=== PATIENT | male | born 1960 | race African-American/Black ===

== ENCOUNTER 2018-09-26 14:58 | Emergency (ER) | payer BC ==
[2018-09-26] MEDS ORDERED: NORMAL SALINE 500 ML IV ONE (15:52)
[2018-09-26] MEDS ORDERED: DIAZEPAM 5 MG TABLET PO ONE (15:52)
--- NOTE | 2018-09-26 15:54 | ER Document Report ---
ED Medical Screen (RME) - General Chief Complaint: Dizziness Stated Complaint: DIZZY Time Seen by Provider: 09/26/18 15:50 Mode of Arrival: Ambulatory Information source: Patient Notes: This is a 58-year-old man with a history of dyslipidemia, hypertension, diabetes, CVA who presents to the emergency room with acute onset of dizziness and unsteady gait. Patient's symptoms started approximately 7 AM while he was at work. The symptoms persisted so he came to the ER. In pit, there is no facial asymmetry, no slurred speech, no focal motor weakness. TRAVEL OUTSIDE OF THE [place] IN LAST 30 DAYS: No - Related Data Allergies/Adverse Reactions: Shellfish * [Shellfish] Allergy (Severe, Verified 09/26/18 15:13) Anaphylaxis Past Medical History - Social History Frequency of alcohol use: Rare Drug Abuse: None - Past Medical History Cardiac Medical History: Reports: Hx Hypercholesterolemia, Hx Hypertension Neurological Medical History: Reports: Hx Cerebrovascular Accident, Hx Seizures Endocrine Medical History: Reports: Hx Diabetes Mellitus Type 2 Renal/ Medical History: Denies: Hx Peritoneal Dialysis Psychiatric Medical History: Denies: Hx Depression - Immunizations Hx Diphtheria, Pertussis, Tetanus Vaccination: No Physical Exam - Vital signs Vitals: Temp Pulse Resp BP Pulse Ox 98.2 F 75 19 148/92 H 92 09/26/18 15:16 09/26/18 15:16 09/26/18 15:16 09/26/18 15:16 09/26/18 15:16 Course - Vital Signs Vital signs: Temp Pulse Resp BP Pulse Ox 98.2 F 75 19 148/92 H 92 09/26/18 15:16 09/26/18 15:16 09/26/18 15:16 09/26/18 15:16 09/26/18 15:16 Doctor's Discharge - Discharge Referrals: CHILANGO LOO MD [Primary Care Provider] - Follow up as needed
--- NOTE | 2018-09-26 16:30 | ER Document Report ---
ED General - General Chief Complaint: Dizziness Stated Complaint: DIZZY Time Seen by Provider: 09/26/18 15:50 Mode of Arrival: Ambulatory Information source: Patient Notes: 58-year-old male with hypertension, hyperlipidemia, type 2 diabetes, previous CVA presents from work with complaint of dizziness that started 1 AM and a frontal headache. Patient describes the dizziness as "I feel like I am going to fall out". Patient's headache is described as a throbbing pain located in his forehead. Patient denies any head injury, visual change, vomiting, slurred speech, difficulty with ambulation, recent illness, chest pain, shortness of breath, abdominal pain, dysuria, hematuria, recent hospitalizations. TRAVEL OUTSIDE OF THE [place] IN LAST 30 DAYS: No - HPI Onset: This morning Onset/Duration: Gradual, Persistent Quality of pain: Throbbing Severity: Mild Associated symptoms: Headache, Other - Dizziness Exacerbated by: Walking Relieved by: Denies Similar symptoms previously: No Recently seen / treated by doctor: No - Related Data Allergies/Adverse Reactions: Shellfish * [Shellfish] Allergy (Severe, Verified 09/26/18 15:13) Anaphylaxis Past Medical History - General Information source: Patient - Social History Smoking Status: Never Smoker Frequency of alcohol use: Rare Drug Abuse: None Lives with: Spouse/Significant other Family History: Reviewed & Not Pertinent - History of dvt, pe Patient has suicidal ideation: No Patient has homicidal ideation: No - Past Medical History Cardiac Medical History: Reports: Hx Hypercholesterolemia, Hx Hypertension Neurological Medical History: Reports: Hx Cerebrovascular Accident, Hx Seizures Endocrine Medical History: Reports: Hx Diabetes Mellitus Type 2 Renal/ Medical History: Denies: Hx Peritoneal Dialysis Psychiatric Medical History: Denies: Hx Depression - Immunizations Hx Diphtheria, Pertussis, Tetanus Vaccination: No Review of Systems - Review of Systems Notes: REVIEW OF SYSTEMS: CONSTITUTIONAL : Denies fever, chills, or sweats. Denies recent illness. Denies weight loss, recent hospitalizations. EENT: Denies visual changes, eye pain. Denies sore throat, oral lesions, difficulty swallowing. CARDIOVASCULAR: Denies chest pain. Denies palpitations. Denies lower extremity edema. RESPIRATORY: Denies cough. Denies shortness of breath, wheezing. GASTROINTESTINAL: Denies abdominal pain or distention. Denies nausea, vomiting, or diarrhea. Denies blood in vomitus, stools, or per rectum. Denies black, tarry stools. Denies constipation. GENITOURINARY: Denies difficulty urinating, painful urination, frequency, blood in urine, testicular pain or penile discharge. MUSCULOSKELETAL: Denies back or neck pain or stiffness. Denies joint pain or swelling. SKIN: Denies rash, lesions or sores. HEMATOLOGIC : Denies easy bruising or bleeding. LYMPHATIC: Denies swollen glands. NEUROLOGICAL: Denies confusion or altered mental status. Denies loss of consciousness. Denies weakness or paralysis. Denies difficulty with ambulation, slurred speech. Denies sensory loss, numbness, or tingling. Denies seizures. PSYCHIATRIC: Denies anxiety or stress. Denies depression, suicidal ideation, or Physical Exam - Vital signs Vitals: Temp Pulse Resp BP Pulse Ox 98.2 F 75 19 148/92 H 92 09/26/18 15:16 09/26/18 15:16 09/26/18 15:16 09/26/18 15:16 09/26/18 15:16 - Notes Notes: PHYSICAL EXAMINATION: GENERAL: Well-appearing, well-nourished and in no acute distress. HEAD: Atraumatic, normocephalic. EYES: Pupils equal round and reactive to light, extraocular movements intact, sclera anicteric, conjunctiva are normal. ENT: Nares patent, oropharynx clear without exudates. Moist mucous membranes. NECK: Normal range of motion, supple without lymphadenopathy LUNGS: Breath sounds clear to auscultation bilaterally and equal. No wheezes rales or rhonchi. HEART: Regular rate and rhythm without murmurs ABDOMEN: Soft, nontender, nondistended abdomen. No guarding, no rebound. No masses appreciated. Musculoskeletal: Normal range of motion, no pitting or edema. No cyanosis. NEUROLOGICAL: Cranial nerves grossly intact. Normal speech, normal gait. Normal sensory, motor exams. NIH 0 PSYCH: Normal mood, normal affect. SKIN: Warm, Dry, normal turgor, no rashes or lesions noted. Course - Re-evaluation Re-evalutation: 09/26/18 19:17 Laboratory 09/26/18 09/26/18 09/26/18 16:38 16:38 16:38 WBC 7.8 RBC 5.45 Hgb 15.7 Hct 47.8 MCV 88 MCH 28.9 MCHC 32.9 RDW 13.5 Plt Count 229 Seg Neutrophils % 68.0 Lymphocytes % 20.0 Monocytes % 9.3 Eosinophils % 2.0 Basophils % 0.7 Absolute Neutrophils 5.3 Absolute Lymphocytes 1.6 Absolute Monocytes 0.7 Absolute Eosinophils 0.2 Absolute Basophils 0.1 Sodium 143.0 Potassium 4.8 Chloride 107 Carbon Dioxide 26 Anion Gap 10 BUN 16 Creatinine 1.39 H Est GFR ( Amer) > 60 Est GFR (Non-Af Amer) 52 L Glucose 106 Calcium 9.9 Total Bilirubin 0.9 Direct Bilirubin 0.3 Neonat Total Bilirubin Not Reportable Neonat Direct Bilirubin Not Reportable Neonat Indirect Bili Not Reportable AST 31 ALT 48 Alkaline Phosphatase 108 Troponin I < 0.012 Total Protein 8.0 Albumin 4.7 Head MRI 09/26/18 15:52 IMPRESSION: No MR evidence of acute diffusion restricting infarction. Small vessel white matter disease. EVIDENCE OF ACUTE STROKE: NO. Temp Pulse Resp BP Pulse Ox 97.4 F 76 16 128/79 H 92 09/26/18 19:34 09/26/18 19:34 09/26/18 19:34 09/26/18 19:34 09/26/18 19:34 58-year-old male with hypertension, hyperlipidemia, type 2 diabetes, previous CVA presents from work with complaint of dizziness that started 1 AM and a frontal headache. Vital signs reviewed upon arrival and patient is afebrile, normotensive and not hypoxic. Patient has a normal physiologic and neurologic exam. NIH is 0. MRI ordered by the physician in triage is negative for evidence of acute stroke. Patient reports improvement of his dizziness after receiving IV fluids and Valium. MRI negative for stroke. CBC, CMP and cardiac enzymes are essentially unremarkable except for mildly elevated creatinine which is better than the patient's usual baseline. Patient is able to ambulate without difficulty. He is tolerating p.o. Patient was evaluated and treated as appropriate for the patient's presenting symptoms and complaint, with consideration of any critical or life threatening conditions that may be associated with their obtained history and exam as noted above. All results were discussed with patient and his patient provided the opportunity to ask questions, and express concerns. Patient was educated on treatments based on their presumed diagnosis as noted above. At this time we will discharge the patient with return precautions and follow-up recommendations. Verbal discharge instructions given a the bedside. Medication warnings reviewed. Patient is in agreement with this plan and has verbalized understanding of return precautions. After careful consideration I feel that that patient can be safely discharged from the emergency department, they were advised to followup with a primary care physician in 2-3 days. Dictation on this chart was performed using voice recognition software and may result in unintended grammatical, spelling, syntax or errors. 09/27/18 02:26 - Vital Signs Vital signs: Temp Pulse Resp BP Pulse Ox 97.4 F 76 16 128/79 H 92 09/26/18 19:34 09/26/18 19:34 09/26/18 19:34 09/26/18 19:34 09/26/18 19:34 - Laboratory Result Diagrams: 09/26/18 16:38 09/26/18 16:38 Laboratory results interpreted by me: 09/26/18 16:38 Creatinine 1.39 H Est GFR (Non-Af Amer) 52 L - Diagnostic Test Radiology reviewed: Image reviewed, Reports reviewed - EKG Interpretation by Me EKG shows normal: Sinus rhythm Rate: Normal Rhythm: NSR Heart block present: 1st Degree When compared to previous EKG there are: Changes noted Discharge - Discharge Clinical Impression: Dizziness Hypertension Qualifiers: Hypertension type: unspecified Qualified Code(s): I10 - Essential (primary) hypertension Condition: Good Disposition: HOME, SELF-CARE Instructions: Dizziness ([facility]), Meclizine ([facility]), Vertigo ([facility]) Prescriptions: Meclizine HCl 25 mg PO Q8H #10 tab.chew Forms: Elevated Blood Pressure, Return to Work Referrals: CHILANGO LOO MD [NO LOCAL MD] - Follow up as needed
[2018-09-26 16:55] LABS: ABSOLUTE BASOPHILS # (AUTO) 0.1 10^3/uL (0.0-0.2); ABSOLUTE EOSINOPHILS # (AUTO) 0.2 10^3/uL (0.0-0.6); ABSOLUTE LYMPHOCYTES (AUTO) 1.6 10^3/uL (0.5-4.7); ABSOLUTE MONOCYTES (AUTO) 0.7 10^3/uL (0.1-1.4); ABSOLUTE NEUT (AUTO) 5.3 10^3/uL (1.7-8.2); BASOPHILS % (AUTO) 0.7 % (0-2); HEMATOCRIT 47.8 % (37.9-51.0); HEMOGLOBIN 15.7 g/dL (13.5-17.0); MEAN CORPUSCULAR HEMOGLOBIN 28.9 pg (27.0-33.4); MEAN CORPUSCULAR HGB CONC 32.9 g/dL (32.0-36.0); MEAN CORPUSCULAR VOLUME 88 fl (80-97); MONOCYTES % (AUTO) 9.3 % (3-13); PLATELET COUNT 229 10^3/uL (150-450); RED BLOOD COUNT 5.45 10^6/uL (4.35-5.55); RED CELL DISTRIBUTION WIDTH 13.5 % (11.5-14.0); TOTAL CELLS COUNTED % (AUTO) 100 %; WHITE BLOOD COUNT 7.8 10^3/uL (4.0-10.5)
[2018-09-26 17:17] LABS: ALANINE AMINOTRANSFERASE 48 U/L (21-72); ALBUMIN 4.7 g/dL (3.5-5.0); ALKALINE PHOSPHATASE 108 U/L (38-126); ANION GAP 10 (5-19); ASPARTATE AMINO TRANSFERASE 31 U/L (17-59); BILIRUBIN,DIRECT 0.3 mg/dL (0.0-0.4); BILIRUBIN,TOTAL 0.9 mg/dL (0.2-1.3); BLOOD UREA NITROGEN 16 mg/dL (7-20); CALCIUM 9.9 mg/dL (8.4-10.2); CARBON DIOXIDE 26 mmol/L (22-30); CHLORIDE 107 mmol/L (98-107); GLUCOSE 106 mg/dL (75-110); POTASSIUM 4.8 mmol/L (3.6-5.0)
--- NOTE | 2018-09-26 18:39 | RADIOLOGY REPORT (SQ) ---
EXAM DESCRIPTION: MRI HEAD WITHOUT COMPLETED DATE/TIME: 09/26/2018 6:25 pm REASON FOR STUDY: dizziness, r/o cva COMPARISON: MR brain, 12/27/2015 TECHNIQUE: Multiplanar imaging includes non-contrasted T1, T2, FLAIR, and diffusion with ADC map seq uences. Images stored on PACS. LIMITATIONS: None. FINDINGS: ANATOMY: No anomalies. Normal vascular flow voids. Pituitary fossa normal. CSF SPACES: Normal in size and contour. No hemorrhage. CEREBRUM: Sulci and gyri normal in size and contour. Scattered and confluent periventricular T2/FLAI R hyperintensity. No evidence of hemorrhage, mass, or extraaxial fluid collection. POSTERIOR FOSSA: No signal alteration. No hemorrhage. No edema, masses or mass effect. Internal matthew tory canals, cerebello-pontine angles, mastoids normal. DIFFUSION IMAGING: Negative for acute or sub-acute infarction. ORBITS: No masses. Globes normal. PARANASAL SINUSES: No fluid levels. Mucosa normal. OTHER: No other significant finding. IMPRESSION: No MR evidence of acute diffusion restricting infarction. Small vessel white matter dis ease. EVIDENCE OF ACUTE STROKE: NO. TECHNICAL DOCUMENTATION: JOB ID: [id number] [employer]- All Rights Reserved Reading location - IP/workstation name: [email or web address]
[2018-09-26 19:45] VITALS: BP 128/79
--- NOTE | 2018-09-26 20:24 | EKG REPORT ---
SEVERITY:- ABNORMAL ECG - SINUS RHYTHM FIRST DEGREE AV BLOCK : Confirmed by: Mitzi Biswas 26-Sep-2018 20:24:01
== END 2018-09-26 19:44 | disposition home or self-care (01) ==
LOC: ER 14:58
DX: R42 Dizziness and giddiness (principal); I10 Essential (primary) hypertension; R51 Headache; E78.5 Hyperlipidemia, unspecified; E11.9 Type 2 diabetes mellitus without complications
CPT/HCPCS: 93005; 99284; 36415; 85025; 80053; 84484; 70551; 93010; J7040

== ENCOUNTER 2018-09-30 16:22 | Emergency (ER) | payer BC ==
[2018-09-30 16:43] VITALS: BP 139/81
== END 2018-09-30 19:45 | disposition left against medical advice (07) ==
LOC: ER 16:22
DX: Z53.21 Procedure and treatment not carried out due to patient leaving prior to being seen by health care provider (principal)

== ENCOUNTER 2018-10-01 12:20 | Emergency (ER) | payer BC ==
[2018-10-01 14:13] VITALS: BP 147/86
--- NOTE | 2018-10-01 14:23 | ER Document Report ---
HPI - HPI Time Seen by Provider: 10/01/18 14:18 Pain Level: 1 Notes: Patient is a 58-year-old male who presents the emergency department requesting a work note. Patient reports he was seen here on 09/26/18 and diagnosed with vertigo. Patient reports that his initial work release was supposed to be for today however he states his symptoms have mostly resolved but not completely and he would like to be out until Saturday. Patient denies any acute concerns or complaints at this time. - CONSTITUTIONAL Constitutional: DENIES: Fever, Chills - NEURO Neurology: REPORTS: Dizzinesss / Vertigo - follow-up Past Medical History - General Information source: Patient - Social History Smoking Status: Never Smoker Frequency of alcohol use: None Drug Abuse: None Family History: Reviewed & Not Pertinent - History of dvt, pe Patient has suicidal ideation: No Patient has homicidal ideation: No - Past Medical History Cardiac Medical History: Reports: Hx Hypercholesterolemia, Hx Hypertension Neurological Medical History: Reports: Hx Cerebrovascular Accident, Hx Seizures Endocrine Medical History: Reports: Hx Diabetes Mellitus Type 2 Renal/ Medical History: Denies: Hx Peritoneal Dialysis Psychiatric Medical History: Denies: Hx Depression - Immunizations Hx Diphtheria, Pertussis, Tetanus Vaccination: No Vertical Provider Document - CONSTITUTIONAL Notes: PHYSICAL EXAMINATION: GENERAL: Well-appearing, well-nourished and in no acute distress. HEAD: Atraumatic, normocephalic. EYES: Pupils equal round extraocular movements intact, conjunctiva are normal. ENT: Nares patent NECK: Normal range of motion LUNGS: No respiratory distress Musculoskeletal: Normal range of motion NEUROLOGICAL: Normal speech, normal gait. PSYCH: Normal mood, normal affect. SKIN: Warm, Dry, normal turgor, no rashes or lesions noted. - INFECTION CONTROL TRAVEL OUTSIDE OF THE [place] IN LAST 30 DAYS: No Course - Re-evaluation Re-evalutation: Patient was seen in this emergency department a few days ago and diagnosed with vertigo. He states that his symptoms have mostly resolved however he would like to go back to work Saturday instead of tomorrow. I will update his work note. He has no acute complaints today. - Vital Signs Vital signs: Temp Pulse Resp BP Pulse Ox 99.2 F 70 16 147/86 H 96 10/01/18 14:11 10/01/18 14:11 10/01/18 14:11 10/01/18 14:11 10/01/18 14:11 Discharge - Discharge Clinical Impression: Vertigo Condition: Stable Disposition: HOME, SELF-CARE Additional Instructions: I am happy to hear that your symptoms of vertigo are improving. Please continue to take the medications as prescribed by your doctor. Your work note is enclosed with your paperwork. Forms: Return to Work Referrals: FRANTZ DICK FNP [Primary Care Provider] - Follow up as needed
== END 2018-10-01 14:30 | disposition home or self-care (01) ==
LOC: ER 12:20
DX: R42 Dizziness and giddiness (principal); I10 Essential (primary) hypertension; E11.9 Type 2 diabetes mellitus without complications
CPT/HCPCS: 99281

== ENCOUNTER 2019-06-26 19:06 | Emergency (ER) | payer BC ==
[2019-06-26] MEDS ORDERED: NORMAL SALINE 1000 ML 1,000 ML IV ONE (19:53)
--- NOTE | 2019-06-26 19:53 | ER Document Report ---
ED Medical Screen (RME) - General Chief Complaint: High Blood Sugar Stated Complaint: REPORTS HIGH BLOOD SUGAR Time Seen by Provider: 06/26/19 19:48 Primary Care Provider: FRANTZ DICK FNP [Primary Care Provider] - Follow up as needed Mode of Arrival: Ambulatory Information source: Patient Notes: 59-year-old male presented to ED for elevated blood sugar. He states his blood sugar was 448 at home is 596 in the emergency room. He states he is on Trulicity. He states he is on a proper diet at home trying to maintain his sugar. He states he normally runs in the 200s. This is very high for him. He states also she has had to eat today as some leftover fish. He states he is type II diabetic. He states he came into the emergency room when he had a strok e. He states that the time his blood pressure and his blood sugar were both higher and they do not know which one caused the stroke. He states he has been on medication and treatment for both since then. He states that was about 2 or 3 years ago. I have greeted and performed a rapid initial assessment of this patient. A comprehensive ED assessment and evaluation of the patient, analysis of test results and completion of medical decision making process will be conducted by an additional ED providers. TRAVEL OUTSIDE OF THE [place] IN LAST 30 DAYS: No - Related Data Allergies/Adverse Reactions: Shellfish * [Shellfish] Allergy (Severe, Verified 10/01/18 12:24) Anaphylaxis Past Medical History - Past Medical History Cardiac Medical History: Reports: Hx Hypercholesterolemia, Hx Hypertension Neurological Medical History: Reports: Hx Cerebrovascular Accident, Hx Seizures Endocrine Medical History: Reports: Hx Diabetes Mellitus Type 2 Renal/ Medical History: Denies: Hx Peritoneal Dialysis Psychiatric Medical History: Denies: Hx Depression - Immunizations Hx Diphtheria, Pertussis, Tetanus Vaccination: No Doctor's Discharge - Discharge Referrals: FRANTZ DICK FNP [Primary Care Provider] - Follow up as needed
[2019-06-26 20:33] LABS: VENOUS BLOOD BASE EXCESS 1.1 mmol/L; VENOUS BLOOD HCO3 29.4 mmol/L (20-32); VENOUS BLOOD PCO2 60.2 mmHg (35-63); VENOUS BLOOD PH 7.31 (7.30-7.42)
[2019-06-26 20:34] LABS: ABSOLUTE BASOPHILS # (AUTO) 0.1 10^3/uL (0.0-0.2); ABSOLUTE EOSINOPHILS # (AUTO) 0.2 10^3/uL (0.0-0.6); ABSOLUTE LYMPHOCYTES (AUTO) 2.1 10^3/uL (0.5-4.7); ABSOLUTE MONOCYTES (AUTO) 0.7 10^3/uL (0.1-1.4); ABSOLUTE NEUT (AUTO) 5.3 10^3/uL (1.7-8.2); HEMATOCRIT 52.4 % (37.9-51.0); HEMOGLOBIN 17.1 g/dL (13.5-17.0); LYMPHOCYTES % (AUTO) 25.2 % (13-45); MEAN CORPUSCULAR HEMOGLOBIN 27.8 pg (27.0-33.4); MEAN CORPUSCULAR HGB CONC 32.6 g/dL (32.0-36.0); MEAN CORPUSCULAR VOLUME 85 fl (80-97); MONOCYTES % (AUTO) 8.2 % (3-13); PLATELET COUNT 187 10^3/uL (150-450); RED BLOOD COUNT 6.14 10^6/uL (4.35-5.55); RED CELL DISTRIBUTION WIDTH 13.5 % (11.5-14.0); SEGMENTED NEUTROPHILS % (AUTO) 63.6 % (42-78); TOTAL CELLS COUNTED % (AUTO) 100 %; WHITE BLOOD COUNT 8.4 10^3/uL (4.0-10.5)
[2019-06-26 20:35] LABS: APPEARANCE,URINE CLEAR; BILIRUBIN,URINE NEGATIVE (NEGATIVE); COLOR,URINE STRAW; GLUCOSE, URINE >=500 mg/dL (NEGATIVE); KETONES,URINE TRACE mg/dL (NEGATIVE); LEUKOCYTE ESTERASE,URINE NEGATIVE (NEGATIVE); NITRITE,URINE NEGATIVE (NEGATIVE); PROTEIN,URINE NEGATIVE (NEGATIVE); URINE SPECIFIC GRAVITY 1.028; UROBILINOGEN,URINE NEGATIVE mg/dL (<2.0)
[2019-06-26 20:47] LABS: ALBUMIN 4.9 g/dL (3.5-5.0); ALKALINE PHOSPHATASE 180 U/L (38-126); ANION GAP 16 (5-19); ASPARTATE AMINO TRANSFERASE 33 U/L (17-59); BILIRUBIN,DIRECT 0.2 mg/dL (0.0-0.4); BILIRUBIN,TOTAL 0.6 mg/dL (0.2-1.3); BLOOD UREA NITROGEN 18 mg/dL (7-20); CARBON DIOXIDE 24 mmol/L (22-30); CHLORIDE 94 mmol/L (98-107); CREATINE KINASE 465 U/L (55-170); POTASSIUM 4.5 mmol/L (3.6-5.0); TOTAL PROTEIN 8.5 g/dL (6.3-8.2)
[2019-06-26 20:57] LABS: GLUCOSE 589 mg/dL (75-110)
[2019-06-26 20:59] LABS: CREATINE KINASE MB 2.58 ng/mL (<4.55); TROPONIN I 0.015 ng/mL
[2019-06-26] MEDS ORDERED: INSULIN REG, HUMAN 100 UNIT/ML 3 ML VIAL (PYX) SUBCUT ONE (21:33)
--- NOTE | 2019-06-26 23:04 | ER Document Report ---
ED General - General Chief Complaint: High Blood Sugar Stated Complaint: REPORTS HIGH BLOOD SUGAR Time Seen by Provider: 06/26/19 19:48 Primary Care Provider: FRANTZ DICK FNP [Primary Care Provider] - Follow up as needed Mode of Arrival: Ambulatory TRAVEL OUTSIDE OF THE [place] IN LAST 30 DAYS: No - HPI Patient complains to provider of: High blood sugar Notes: This is a 59-year-old male with a history of diabetes that presents complaining that his blood sugars running high. Patient states he has had some general malaise and polyuria the past 2 days and noticed that his fingerstick blood sugar was high when he checked it at home earlier today prior to arrival at the ED. Patient states that he used to be on metformin but was taken off of that drug because of renal issues. As of late, patient has been receiving Trulicity injections weekly. Patient states that his PCP had reduce the amount of the injection recently because his sugars have been doing better in general. - Related Data Allergies/Adverse Reactions: Shellfish * [Shellfish] Allergy (Severe, Verified 10/01/18 12:24) Anaphylaxis Home Medications: atorvastatin 40 mg 1 tab daily. dyazide 37.5-25mg 1 tab daily. hydralazine 25 mg 1 tab bid. keppra 500 mg 1 tab bid. meclizine 25 mg 1 tab tid. norvasc 10mg 1 tab daily. prozac 20mg take 2 capsules qam. triamcinolone 0.1%bid. trulicity 0.75mg/0.5 ml weekly Past Medical History - General Information source: Patient - Social History Smoking Status: Never Smoker Frequency of alcohol use: Rare Drug Abuse: None Family History: Reviewed & Not Pertinent - History of dvt, pe Patient has suicidal ideation: No Patient has homicidal ideation: No - Past Medical History Cardiac Medical History: Reports: Hx Hypercholesterolemia, Hx Hypertension Neurological Medical History: Reports: Hx Cerebrovascular Accident, Hx Seizures Endocrine Medical History: Reports: Hx Diabetes Mellitus Type 2 Renal/ Medical History: Denies: Hx Peritoneal Dialysis Psychiatric Medical History: Denies: Hx Depression - Immunizations Hx Diphtheria, Pertussis, Tetanus Vaccination: No Review of Systems - Review of Systems Constitutional: No symptoms reported EENT: No symptoms reported Cardiovascular: No symptoms reported. denies: Chest pain Respiratory: No symptoms reported. denies: Short of breath Gastrointestinal: No symptoms reported Genitourinary: Other - Polyuria Male Genitourinary: No symptoms reported Musculoskeletal: No symptoms reported Skin: No symptoms reported Hematologic/Lymphatic: No symptoms reported Neurological/Psychological: No symptoms reported -: Yes All other systems reviewed and negative Physical Exam - Vital signs Vitals: Temp Pulse Resp BP Pulse Ox 98.3 F 88 18 135/92 H 97 06/26/19 19:06 06/26/19 19:06 06/26/19 19:06 06/26/19 19:06 06/26/19 19:06 - Notes Notes: PHYSICAL EXAMINATION: GENERAL: Well-appearing, well-nourished and in no acute distress. HEAD: Atraumatic, normocephalic. EYES: Pupils equal round and reactive to light, extraocular movements intact, sclera anicteric, conjunctiva are normal. ENT: nares patent, oropharynx clear without exudates. Moist mucous membranes. NECK: Normal range of motion, supple without lymphadenopathy LUNGS: Breath sounds clear to auscultation bilaterally and equal. No wheezes rales or rhonchi. HEART: Regular rate and rhythm without murmurs ABDOMEN: Soft, nontender, normoactive bowel sounds. No guarding, no rebound. No masses appreciated. EXTREMITIES: Normal range of motion, no pitting or edema. No cyanosis. NEUROLOGICAL: No focal neurological deficits. Moves all extremities spontaneously and on command. PSYCH: Normal mood, normal affect. SKIN: Warm, Dry, normal turgor, no rashes or lesions noted. Course - Re-evaluation Re-evalutation: 06/27/19 00:42 blood glucose down, pt remains in nad - Vital Signs Vital signs: Temp Pulse Resp BP Pulse Ox 98.2 F 78 16 134/74 H 93 06/26/19 23:30 06/26/19 23:30 06/26/19 23:30 06/26/19 23:30 06/26/19 23:30 - Laboratory Result Diagrams: 06/26/19 20:10 06/26/19 20:10 Laboratory results interpreted by me: 06/26/19 06/26/19 06/26/19 20:10 20:10 20:10 RBC 6.14 H Hgb 17.1 H Hct 52.4 H Sodium 133.7 L Chloride 94 L Creatinine 1.56 H Est GFR ( Amer) 55 L Est GFR (MDRD) Non-Af 46 L Glucose 589 H* POC Glucose Alkaline Phosphatase 180 H Creatine Kinase 465 H Total Protein 8.5 H Urine Glucose (UA) >=500 H Urine Ketones TRACE H 06/26/19 23:24 RBC Hgb Hct Sodium Chloride Creatinine Est GFR ( Amer) Est GFR (MDRD) Non-Af Glucose POC Glucose 427 H* Alkaline Phosphatase Creatine Kinase Total Protein Urine Glucose (UA) Urine Ketones - EKG Interpretation by Me Additional EKG results interpreted by me: 06/26/19 23:01 EKG performed at 2130 hrs. on 06/26/2019 was interpreted by this MD. Findings: Normal sinus rhythm, heart rate 78, normal axis, narrow QRS, nonspecific ST segments. Morphology of EKG appears grossly similar in comparison to EKG done on 09/26/2018. Discharge - Discharge Clinical Impression: Hyperglycemia Condition: Good Disposition: HOME, SELF-CARE Instructions: Hyperglycemia ([facility]) Additional Instructions: Return to the Emergency Department without delay if any worse. Referrals: FRANTZ DICK FNP [Primary Care Provider] - 06/29/19
[2019-06-27 01:28] VITALS: BP 149/86
--- NOTE | 2019-06-28 00:20 | EKG REPORT ---
SEVERITY:- BORDERLINE ECG - SINUS RHYTHM PROBABLE LEFT ATRIAL ABNORMALITY BORDERLINE T ABNORMALITIES, INFERIOR LEADS : Confirmed by: Mitzi Biswas 28-Jun-2019 00:19:33
== END 2019-06-27 01:28 | disposition home or self-care (01) ==
LOC: ER 19:06
DX: E11.65 Type 2 diabetes mellitus with hyperglycemia (principal); Z79.84 Long term (current) use of oral hypoglycemic drugs; R53.81 Other malaise; R35.8 Other polyuria; I10 Essential (primary) hypertension; E78.00 Pure hypercholesterolemia, unspecified; R56.9 Unspecified convulsions; Z79.899 Other long term (current) drug therapy; Z87.892 Personal history of anaphylaxis; Z91.013 Allergy to seafood
CPT/HCPCS: 93005; 36415; 82553; 82962; 82550; 85025; 80053; 81001; 84484; 82803; 93010; J1815; J7030; 96360; 96361; 99285

== ENCOUNTER 2019-07-07 15:21 | Inpatient (IN) | payer BC ==
[2019-07-07] MEDS ORDERED: NORMAL SALINE 1000 ML 1,000 ML IV ONE (16:01)
[2019-07-07] MEDS ORDERED: INSULIN REG, HUMAN 100 UNIT/ML 3 ML VIAL (PYX) IV ONE (16:02)
[2019-07-07 16:12] LABS: ABSOLUTE BASOPHILS # (AUTO) 0.1 10^3/uL (0.0-0.2); ABSOLUTE LYMPHOCYTES (AUTO) 2.4 10^3/uL (0.5-4.7); ABSOLUTE MONOCYTES (AUTO) 1.2 10^3/uL (0.1-1.4); ABSOLUTE NEUT (AUTO) 5.7 10^3/uL (1.7-8.2); BASOPHILS % (AUTO) 0.7 % (0-2); EOSINOPHILS % (AUTO) 0.5 % (0-6); HEMOGLOBIN 19.3 g/dL (13.5-17.0); LYMPHOCYTES % (AUTO) 25.3 % (13-45); MEAN CORPUSCULAR HEMOGLOBIN 28.1 pg (27.0-33.4); MEAN CORPUSCULAR HGB CONC 32.8 g/dL (32.0-36.0); MEAN CORPUSCULAR VOLUME 86 fl (80-97); MONOCYTES % (AUTO) 12.7 % (3-13); RED BLOOD COUNT 6.87 10^6/uL (4.35-5.55); RED CELL DISTRIBUTION WIDTH 13.1 % (11.5-14.0); SEGMENTED NEUTROPHILS % (AUTO) 60.8 % (42-78); TOTAL CELLS COUNTED % (AUTO) 100 %; WHITE BLOOD COUNT 9.3 10^3/uL (4.0-10.5)
[2019-07-07 16:17] LABS: VENOUS BLOOD BASE EXCESS -2.1 mmol/L; VENOUS BLOOD HCO3 24.7 mmol/L (20-32); VENOUS BLOOD PCO2 48.9 mmHg (35-63); VENOUS BLOOD PH 7.32 (7.30-7.42)
--- NOTE | 2019-07-07 16:32 | RADIOLOGY REPORT (SQ) ---
EXAM DESCRIPTION: CHEST SINGLE VIEW COMPLETED DATE/TIME: 07/07/2019 4:23 pm REASON FOR STUDY: sob COMPARISON: PA and lateral views of the chest from 04/27/2016. EXAM PARAMETERS: NUMBER OF VIEWS: One view. TECHNIQUE: Single frontal radiographic view of the chest acquired. RADIATION DOSE: NA LIMITATIONS: None. FINDINGS: LUNGS AND PLEURA: Low inspiratory lung volumes without a superimposed consolidation, pleur al effusion or pneumothorax. MEDIASTINUM AND HILAR STRUCTURES: No mediastinal or hilar contour abnormality. HEART AND VASCULAR STRUCTURES: The cardiac silhouette and pulmonary vasculature are within normal underwood its. BONES: No acute findings. HARDWARE: None in the chest. OTHER: No other finding. IMPRESSION: Low inspiratory lung volumes without a superimposed acute cardiopulmonary process. TECHNICAL DOCUMENTATION: JOB ID: [id number] [employer]- All Rights Reserved Reading location - IP/workstation name: [email or web address]
[2019-07-07 16:38] LABS: HEMATOCRIT 58.8 % (37.9-51.0); PLATELET COUNT 210 10^3/uL (150-450)
[2019-07-07 17:55] LABS: ALBUMIN 5.1 g/dL (3.5-5.0); ALKALINE PHOSPHATASE 142 U/L (38-126); ASPARTATE AMINO TRANSFERASE 33 U/L (17-59); BILIRUBIN,DIRECT 0.3 mg/dL (0.0-0.4); BILIRUBIN,TOTAL 0.9 mg/dL (0.2-1.3); BLOOD UREA NITROGEN 55 mg/dL (7-20); CALCIUM 10.4 mg/dL (8.4-10.2); CARBON DIOXIDE 22 mmol/L (22-30); CHLORIDE 91 mmol/L (98-107); POTASSIUM 5.4 mmol/L (3.6-5.0); TOTAL PROTEIN 9.3 g/dL (6.3-8.2)
[2019-07-07 18:00] LABS: GLUCOSE 395 mg/dL (75-110)
[2019-07-07 18:07] LABS: NT PRO BNP < 11 pg/mL (<125); TROPONIN I < 0.012 ng/mL
[2019-07-07 18:35] LABS: APPEARANCE,URINE CLEAR; BILIRUBIN,URINE NEGATIVE (NEGATIVE); COLOR,URINE YELLOW; GLUCOSE, URINE >=500 mg/dL (NEGATIVE); KETONES,URINE NEGATIVE (NEGATIVE); LEUKOCYTE ESTERASE,URINE NEGATIVE (NEGATIVE); NITRITE,URINE NEGATIVE (NEGATIVE); PROTEIN,URINE NEGATIVE (NEGATIVE); UROBILINOGEN,URINE NEGATIVE mg/dL (<2.0)
[2019-07-07] MEDS ORDERED: OXYCODONE-ACETAMINOPHEN 5-325 MG TABLET PO PRN (18:40)
[2019-07-07] MEDS ORDERED: ZOLPIDEM TARTRATE 5 MG TABLET PO PRN (18:40)
[2019-07-07] MEDS ORDERED: ONDANSETRON HCL INJ/PF 4 MG/2 ML SDV IV PRN (18:40)
[2019-07-07] MEDS ORDERED: ACETAMINOPHEN 325 MG TABLET PO PRN (18:40)
[2019-07-07] MEDS ORDERED: ONDANSETRON 4 MG TAB.RAPDIS PO PRN (18:40)
[2019-07-07] MEDS ORDERED: VALSARTAN 80 MG TABLET PO ONE (18:46)
[2019-07-07] MEDS ORDERED: METFORMIN HCL 500 MG TABLET PO ONE (18:47)
--- NOTE | 2019-07-07 18:48 | EKG REPORT ---
SEVERITY:- BORDERLINE ECG - SINUS TACHYCARDIA PROBABLE LEFT ATRIAL ABNORMALITY MINIMAL ST ELEVATION, ANTEROLATERAL LEADS CONSIDER OLD ANTERIOR CO : Confirmed by: Aime Alvarez MD 07-Jul-2019 18:47:19
[2019-07-07] MEDS ORDERED: DEXTROSE 40% GEL 15 GM TUBE PO PRN ×2 (18:49)
[2019-07-07] MEDS ORDERED: DEXTROSE 50%-WATER 25 GM/50 ML DISP.SYRIN IV PRN ×2 (18:49)
[2019-07-07] MEDS ORDERED: GLUCAGON,HUMAN RECOMB 1 MG INJ IM PRN (18:49)
[2019-07-07 18:50] LABS: ANION GAP 20 (5-19)
[2019-07-07] MEDS ORDERED: ATORVASTATIN CALCIUM 40 MG TABLET PO ONE (18:50)
--- NOTE | 2019-07-07 18:54 | ER Document Report ---
ED Dizziness/Weakness - General Chief Complaint: General Weakness Stated Complaint: WEAKNESS Time Seen by Provider: 07/07/19 15:47 Primary Care Provider: FRANTZ DICK FNP [Primary Care Provider] - Follow up as needed Information source: Patient TRAVEL OUTSIDE OF THE [place] IN LAST 30 DAYS: No - HPI Notes: Patient presents complaining of some generalized weakness. He states that he has been unable to control his blood sugars despite his primary care physician trying multiple different adjustments of the medications he takes for diabetes. He states he has not been short of breath. He has not had chest pain. Patient states that his generalized weakness has been severe. He states it is worse with exertion and better with rest. There is no known radiation symptoms. They have been constant for several days now. He states he has been urinating very frequently, no diarrhea. Fevers or significant cough. - Related Data Allergies/Adverse Reactions: Shellfish * [Shellfish] Allergy (Severe, Verified 10/01/18 12:24) Anaphylaxis Past Medical History - General Information source: Patient - Social History Smoking Status: Never Smoker Chew tobacco use (# tins/day): No Frequency of alcohol use: None Drug Abuse: None Family History: Reviewed & Not Pertinent - History of dvt, pe Patient has suicidal ideation: No Patient has homicidal ideation: No - Past Medical History Cardiac Medical History: Reports: Hx Hypercholesterolemia, Hx Hypertension Neurological Medical History: Reports: Hx Cerebrovascular Accident, Hx Seizures Endocrine Medical History: Reports: Hx Diabetes Mellitus Type 2 Renal/ Medical History: Denies: Hx Peritoneal Dialysis Psychiatric Medical History: Denies: Hx Depression - Immunizations Hx Diphtheria, Pertussis, Tetanus Vaccination: No Review of Systems - Review of Systems Constitutional: Malaise, Weakness Cardiovascular: denies: Chest pain, Palpitations Respiratory: denies: Cough, Short of breath -: Yes All other systems reviewed and negative Physical Exam - Vital signs Vitals: Temp 98.0 F 07/07/19 15:24 Interpretation: Normal - General General appearance: Appears well, Alert - HEENT Head: Normocephalic, Atraumatic Eyes: Normal Pupils: PERRL - Respiratory Respiratory status: No respiratory distress Chest status: Nontender Breath sounds: Decreased air movement - Bilateral Chest palpation: Normal - Cardiovascular Rhythm: Regular Heart sounds: Normal auscultation Murmur: No - Abdominal Inspection: Normal Distension: No distension Bowel sounds: Normal Tenderness: Nontender Organomegaly: No organomegaly - Back Back: Normal, Nontender - Extremities General upper extremity: Normal inspection, Nontender, Normal color, Normal ROM, Normal temperature General lower extremity: Normal inspection, Nontender, Normal color, Normal ROM, Normal temperature, Normal weight bearing. No: Ramon's sign - Neurological Neuro grossly intact: Yes Cognition: Normal Orientation: AAOx4 Diane Coma Scale Eye Opening: Spontaneous Diane Coma Scale Verbal: Oriented [place] Coma Scale Motor: Obeys Commands Diane Coma Scale Total: 15 Speech: Normal Motor strength normal: LUE, RUE, LLE, RLE Sensory: Normal - Psychological Associated symptoms: Normal affect, Normal mood - Skin Skin Temperature: Warm Skin Moisture: Dry Skin Color: Normal Course - Re-evaluation Re-evalutation: 07/07/19 18:54 Patient presents with generalized weakness. His blood sugar is significantly elevated. His lactate is also elevated. I believe this is due to dehydration since he has renal insufficiency and no evidence of infection. He has been treated here with some insulin and fluids and his blood sugar has come down into the mid 300s. His initial O2 saturation was approximately 92% but chest x-ray is unremarkable. He has had no cough and does not feel short of breath. Since patient has been unable to control his blood sugars at home, has dehydration, has an elevated lactate, and some new renal insufficiency seems most prudent for the patient to be admitted and receive inpatient evaluation and treatment. 07/07/19 18:54 - Vital Signs Vital signs: Temp Pulse Resp BP Pulse Ox 98.0 F 24 H 95 07/07/19 15:24 07/07/19 17:00 07/07/19 16:13 - Laboratory Result Diagrams: 07/07/19 15:41 07/07/19 17:13 Laboratory results interpreted by me: 07/07/19 07/07/19 07/07/19 15:40 15:41 15:50 RBC 6.87 H Hgb 19.3 H Hct 58.8 H Sodium Potassium Chloride BUN Creatinine Est GFR ( Amer) Est GFR (MDRD) Non-Af Glucose POC Glucose 447 H* 509 H* Lactic Acid Calcium Alkaline Phosphatase Total Protein Albumin Urine Glucose (UA) Urine Blood 07/07/19 07/07/19 07/07/19 16:18 17:13 17:13 RBC Hgb Hct Sodium 132.9 L Potassium 5.4 H Chloride 91 L BUN 55 H Creatinine 2.33 H Est GFR ( Amer) 35 L Est GFR (MDRD) Non-Af 29 L Glucose 395 H POC Glucose Lactic Acid 2.6 H Calcium 10.4 H Alkaline Phosphatase 142 H Total Protein 9.3 H Albumin 5.1 H Urine Glucose (UA) >=500 H Urine Blood SMALL H 07/07/19 18:27 RBC Hgb Hct Sodium Potassium Chloride BUN Creatinine Est GFR ( Amer) Est GFR (MDRD) Non-Af Glucose POC Glucose 323 H Lactic Acid Calcium Alkaline Phosphatase Total Protein Albumin Urine Glucose (UA) Urine Blood - Diagnostic Test Radiology reviewed: Image reviewed, Reports reviewed - EKG Interpretation by Me EKG shows normal: Sinus rhythm Rate: Tachycardia - 106 Rhythm: NSR [place]/QRS: No: Right axis deviation, Left axis deviation Discharge - Discharge Clinical Impression: Hyperglycemia, Elevated lactic acid level, Dehydration, Renal insufficiency, Weakness Condition: Stable Disposition: ADMITTED INPATIENT Admitting Provider: Sujey (Hospitalist) - Brown to do admit Unit Admitted: Medical Floor Referrals: FRANTZ DICK FNP [Primary Care Provider] - Follow up as needed
--- NOTE | 2019-07-07 18:56 | PDOC H&P ---
History of Present Illness Admission Date/PCP: ALEX VAZQUEZ History of Present Illness: DEYVI GOMEZ is a 59 year old male who is been diabetic now for 2 years. Patient tells me he went to his doctor's office today to get a work note so he can return back to work, the nurse that he did not look well so they took him to the back and they checked his blood sugar and it was over 500. Patient states he is been running in the 400s and really was ready to go back to work the way he felt today. Allergies shellfish other comorbidities include hypertension and he had a CVA 2-1/2 years ago. Past Medical History Cardiac Medical History: Reports: Hyperlipidema, Hypertension Neurological Medical History: Reports: Seizures Endocrine Medical History: Reports: Diabetes Mellitus Type 2 Psychiatric Medical History: Denies: Depression Social History Smoking Status: Never Smoker Electronic Cigarette use?: No Frequency of Alcohol Use: Occasional Hx Recreational Drug Use: No Drugs: None Hx Prescription Drug Abuse: No - Advance Directive Resuscitation Status: Full Code Family History Family History: Reviewed & Not Pertinent - History of dvt, pe Parental Family History Reviewed: No Children Family History Reviewed: No Sibling(s) Family History Reviewed.: No Medication/Allergy Home Medications: Metformin HCl 1,000 mg PO DAILY 12/26/15 Aspirin [Aspirin 325 mg Tablet] 325 mg PO DAILY #30 tablet 12/29/15 Atorvastatin Calcium [Lipitor 40 mg Tablet] 40 mg PO QHS #30 tablet 12/29/15 Levetiracetam [Keppra 500 mg Tablet] 500 mg PO Q12 #60 tablet 12/29/15 Metoprolol Tartrate [Lopressor 50 mg Tablet] 100 mg PO Q12 #60 tablet 12/29/15 Valsartan [Diovan 80 mg Tablet] 80 mg PO DAILY #30 tablet 12/29/15 Meclizine HCl 25 mg PO Q8H #10 tab.chew 09/26/18 Allergies/Adverse Reactions: Shellfish * [Shellfish] Allergy (Severe, Verified 10/01/18 12:24) Anaphylaxis Review of Systems Constitutional: PRESENT: weakness. ABSENT: chills, fever(s), headache(s), weight gain, weight loss Cardiovascular: ABSENT: chest pain, dyspnea on exertion, edema, orthropnea, palpitations Respiratory: ABSENT: cough, hemoptysis Neurological: ABSENT: abnormal gait, abnormal speech, confusion, dizziness, focal weakness, syncope Psychiatric: ABSENT: anxiety, depression, homidical ideation, suicidal ideation Physical Exam Vital Signs: Temp Pulse Resp BP Pulse Ox 98.0 F 24 H 95 07/07/19 15:24 07/07/19 17:00 07/07/19 16:13 Intake & Output 07/06/19 07/07/19 07/08/19 06:59 06:59 06:59 Weight 126.9 kg General appearance: PRESENT: no acute distress, other - Talking in full sentences does not appear to be in any distress Respiratory exam: PRESENT: clear to auscultation cherrie. ABSENT: rales, rhonchi, wheezes Cardiovascular exam: PRESENT: RRR. ABSENT: diastolic murmur, rubs, systolic murmur Neurological exam: PRESENT: alert, awake, oriented to person, oriented to place, oriented to time, oriented to situation, CN II-XII grossly intact. ABSENT: motor sensory deficit Psychiatric exam: PRESENT: appropriate affect, normal mood. ABSENT: homicidal ideation, suicidal ideation Results Laboratory Results: 07/07/19 15:41 07/07/19 17:13 07/07/19 07/07/19 07/07/19 15:41 15:41 15:41 WBC 9.3 RBC 6.87 H Hgb 19.3 H Hct 58.8 H MCV 86 MCH 28.1 MCHC 32.8 RDW 13.1 Plt Count 210 Seg Neutrophils % 60.8 VBG pH 7.32 VBG pCO2 48.9 VBG HCO3 24.7 VBG Base Excess -2.1 Sodium Cancelled Potassium Cancelled Chloride Cancelled Carbon Dioxide Cancelled Anion Gap Cancelled BUN Cancelled Creatinine Cancelled Est GFR ( Amer) Cancelled Est GFR (Non-Af Amer) Cancelled Glucose Cancelled Lactic Acid Calcium Cancelled Total Bilirubin Cancelled AST Cancelled Alkaline Phosphatase Cancelled Total Protein Cancelled Albumin Cancelled Urine Color Urine Appearance Urine pH Ur Specific [place] Urine Protein Urine Glucose (UA) Urine Ketones Urine Blood Urine Nitrite Ur Leukocyte Esterase Urine WBC (Auto) Urine RBC (Auto) 07/07/19 07/07/19 07/07/19 15:41 16:18 17:13 WBC RBC Hgb Hct MCV MCH MCHC RDW Plt Count Seg Neutrophils % VBG pH VBG pCO2 VBG HCO3 VBG Base Excess Sodium Potassium Chloride Carbon Dioxide Anion Gap BUN Creatinine Est GFR ( Amer) Est GFR (Non-Af Amer) Glucose Lactic Acid Cancelled 2.6 H Calcium Total Bilirubin AST Alkaline Phosphatase Total Protein Albumin Urine Color YELLOW Urine Appearance CLEAR Urine pH 5.0 Ur Specific [place] 1.020 Urine Protein NEGATIVE Urine Glucose (UA) >=500 H Urine Ketones NEGATIVE Urine Blood SMALL H Urine Nitrite NEGATIVE Ur Leukocyte Esterase NEGATIVE Urine WBC (Auto) 3 Urine RBC (Auto) 2 07/07/19 17:13 WBC RBC Hgb Hct MCV MCH MCHC RDW Plt Count Seg Neutrophils % VBG pH VBG pCO2 VBG HCO3 VBG Base Excess Sodium 132.9 L Potassium 5.4 H Chloride 91 L Carbon Dioxide 22 Anion Gap 20 H BUN 55 H Creatinine 2.33 H Est GFR ( Amer) 35 L Est GFR (Non-Af Amer) Glucose 395 H Lactic Acid Calcium 10.4 H Total Bilirubin 0.9 AST 33 Alkaline Phosphatase 142 H Total Protein 9.3 H Albumin 5.1 H Urine Color Urine Appearance Urine pH Ur Specific [place] Urine Protein Urine Glucose (UA) Urine Ketones Urine Blood Urine Nitrite Ur Leukocyte Esterase Urine WBC (Auto) Urine RBC (Auto) 07/07/19 07/07/19 15:41 17:13 Troponin I Cancelled < 0.012 NT-Pro-B Natriuret Pep Cancelled < 11 Impressions: Chest X-Ray 07/07/19 16:00 IMPRESSION: Low inspiratory lung volumes without a superimposed acute cardiopulmonary process. Assessment and Plan - Diagnosis (1) Cerebral infarction Is this a current diagnosis for this admission?: Yes (2) Obesity Is this a current diagnosis for this admission?: Yes (3) Uncontrolled diabetes mellitus Is this a current diagnosis for this admission?: Yes (4) Uncontrolled hypertension Is this a current diagnosis for this admission?: Yes - Plan Summary Summary: Patient will be treated with a sliding scale, IV fluids. Patient does not appear to be in DKA. Serum glucose in the ER is 395. Lactic acid 2.6 but no sign of sepsis. Patient was told that he will probably need 2 days of treatment and able to be discharged - Time Time Spent with patient: 35 or more minutes
[2019-07-07] MEDS: NORMAL SALINE 1000 ML 1,000 ML IV PRN (19:28)
[2019-07-07] MEDS: HEPARIN SOD (PORCINE) 5,000 UNIT/ML 1 ML VIAL SUBCUT SCH (22:28)
[2019-07-07] MEDS: METOPROLOL TARTRATE 50 MG TABLET PO SCH (22:29)
[2019-07-07] MEDS: INSULIN LISPRO 100 UNIT/ML 3 ML VIAL SUBCUT SCH (22:29)
[2019-07-07] MEDS: LEVETIRACETAM 500 MG TABLET PO SCH (22:30)
[2019-07-07] MEDS: FAMOTIDINE 20 MG TABLET PO SCH (22:30)
[2019-07-08] MEDS: NORMAL SALINE 1000 ML 1,000 ML IV PRN (04:17)
[2019-07-08] MEDS: HEPARIN SOD (PORCINE) 5,000 UNIT/ML 1 ML VIAL SUBCUT SCH ×3 (05:27→22:40)
[2019-07-08 07:26] LABS: ABSOLUTE BASOPHILS # (AUTO) 0.1 10^3/uL (0.0-0.2); ABSOLUTE EOSINOPHILS # (AUTO) 0.1 10^3/uL (0.0-0.6); ABSOLUTE LYMPHOCYTES (AUTO) 2.1 10^3/uL (0.5-4.7); ABSOLUTE MONOCYTES (AUTO) 1.1 10^3/uL (0.1-1.4); ABSOLUTE NEUT (AUTO) 7.6 10^3/uL (1.7-8.2); BASOPHILS % (AUTO) 0.5 % (0-2); EOSINOPHILS % (AUTO) 1.2 % (0-6); HEMATOCRIT 46.1 % (37.9-51.0); LYMPHOCYTES % (AUTO) 19.4 % (13-45); MEAN CORPUSCULAR HGB CONC 33.5 g/dL (32.0-36.0); MEAN CORPUSCULAR VOLUME 84 fl (80-97); MONOCYTES % (AUTO) 10.2 % (3-13); PLATELET COUNT 172 10^3/uL (150-450); RED BLOOD COUNT 5.52 10^6/uL (4.35-5.55); RED CELL DISTRIBUTION WIDTH 13.2 % (11.5-14.0); SEGMENTED NEUTROPHILS % (AUTO) 68.7 % (42-78); TOTAL CELLS COUNTED % (AUTO) 100 %
[2019-07-08 07:30] LABS: HEMOGLOBIN 15.5 g/dL (13.5-17.0)
[2019-07-08 07:45] LABS: ALBUMIN 3.7 g/dL (3.5-5.0); ALKALINE PHOSPHATASE 95 U/L (38-126); ANION GAP 12 (5-19); ASPARTATE AMINO TRANSFERASE 25 U/L (17-59); BILIRUBIN,DIRECT 0.2 mg/dL (0.0-0.4); BILIRUBIN,TOTAL 0.7 mg/dL (0.2-1.3); BLOOD UREA NITROGEN 47 mg/dL (7-20); CALCIUM 8.7 mg/dL (8.4-10.2); CARBON DIOXIDE 21 mmol/L (22-30); CHLORIDE 101 mmol/L (98-107); GLUCOSE 264 mg/dL (75-110); POTASSIUM 4.5 mmol/L (3.6-5.0); TOTAL PROTEIN 6.7 g/dL (6.3-8.2)
[2019-07-08] MEDS: INSULIN LISPRO 100 UNIT/ML 3 ML VIAL SUBCUT SCH ×4 (09:00→22:39)
[2019-07-08] MEDS: FAMOTIDINE 20 MG TABLET PO SCH ×2 (10:38→22:41)
[2019-07-08] MEDS: METOPROLOL TARTRATE 50 MG TABLET PO SCH ×2 (10:38→10:46)
[2019-07-08] MEDS: LEVETIRACETAM 500 MG TABLET PO SCH ×2 (10:39→22:41)
[2019-07-08] MEDS ORDERED: (PENDING PHARMACY ID) (Butalb/Acetaminophen/Caffeine [Butalb-Acetamin-Caff 50-300-40] 1 CA PO PRN (13:33)
--- NOTE | 2019-07-08 13:41 | PDOC PROGRESS REPORT ---
Subjective Progress Note for:: 07/08/19 Subjective:: DEYVI GOMEZ is a 59 year old male who is been diabetic now for 2 years. Patient tells me he went to his doctor's office today to get a work note so he can return back to work, the nurse that he did not look well so they took him to the back and they checked his blood sugar and it was over 500. Patient states he is been running in the 400s and really was ready to go back to work the way he felt today. Reason For Visit: UNCONTROLLED DIABETES,HYPERTENSION Physical Exam Vital Signs: Temp Pulse Resp BP Pulse Ox 97.6 F 73 16 101/57 L 96 07/08/19 11:37 07/08/19 11:37 07/08/19 11:37 07/08/19 11:37 07/08/19 11:37 Intake & Output 07/07/19 07/08/19 07/09/19 06:59 06:59 06:59 Intake Total 1400 Output Total 850 Balance 550 Weight 103.6 kg General appearance: PRESENT: morbidly obese Head exam: PRESENT: atraumatic, normocephalic Respiratory exam: PRESENT: clear to auscultation cherrie. ABSENT: rales, rhonchi, wheezes Pulses: PRESENT: normal dorsalis pedis pul GI/Abdominal exam: PRESENT: normal bowel sounds, soft. ABSENT: distended, guarding, mass, organolmegaly, rebound, tenderness Neurological exam: PRESENT: alert, awake, oriented to person, oriented to place, oriented to time, oriented to situation, CN II-XII grossly intact. ABSENT: motor sensory deficit Results Laboratory Results: 07/08/19 06:41 07/08/19 06:41 07/07/19 07/07/19 07/07/19 15:41 15:41 15:41 WBC 9.3 RBC 6.87 H Hgb 19.3 H Hct 58.8 H MCV 86 MCH 28.1 MCHC 32.8 RDW 13.1 Plt Count 210 Seg Neutrophils % 60.8 VBG pH 7.32 VBG pCO2 48.9 VBG HCO3 24.7 VBG Base Excess -2.1 Sodium Cancelled Potassium Cancelled Chloride Cancelled Carbon Dioxide Cancelled Anion Gap Cancelled BUN Cancelled Creatinine Cancelled Est GFR ( Amer) Cancelled Est GFR (Non-Af Amer) Cancelled Glucose Cancelled Lactic Acid Calcium Cancelled Magnesium Total Bilirubin Cancelled AST Cancelled Alkaline Phosphatase Cancelled Total Protein Cancelled Albumin Cancelled Amylase Lipase TSH Urine Color Urine Appearance Urine pH Ur Specific [place] Urine Protein Urine Glucose (UA) Urine Ketones Urine Blood Urine Nitrite Ur Leukocyte Esterase Urine WBC (Auto) Urine RBC (Auto) 07/07/19 07/07/19 07/07/19 15:41 15:41 16:18 WBC RBC Hgb Hct MCV MCH MCHC RDW Plt Count Seg Neutrophils % VBG pH Cancelled VBG pCO2 Cancelled VBG HCO3 Cancelled VBG Base Excess Cancelled Sodium Potassium Chloride Carbon Dioxide Anion Gap BUN Creatinine Est GFR ( Amer) Est GFR (Non-Af Amer) Glucose Lactic Acid Cancelled Calcium Magnesium Total Bilirubin AST Alkaline Phosphatase Total Protein Albumin Amylase Lipase TSH Urine Color YELLOW Urine Appearance CLEAR Urine pH 5.0 Ur Specific [place] 1.020 Urine Protein NEGATIVE Urine Glucose (UA) >=500 H Urine Ketones NEGATIVE Urine Blood SMALL H Urine Nitrite NEGATIVE Ur Leukocyte Esterase NEGATIVE Urine WBC (Auto) 3 Urine RBC (Auto) 2 07/07/19 07/07/19 07/07/19 17:13 17:13 17:13 WBC RBC Hgb Hct MCV MCH MCHC RDW Plt Count Seg Neutrophils % VBG pH VBG pCO2 VBG HCO3 VBG Base Excess Sodium 132.9 L Potassium 5.4 H Chloride 91 L Carbon Dioxide 22 Anion Gap 20 H BUN 55 H Creatinine 2.33 H Est GFR ( Amer) 35 L Est GFR (Non-Af Amer) Glucose 395 H Lactic Acid 2.6 H Calcium 10.4 H Magnesium Total Bilirubin 0.9 AST 33 Alkaline Phosphatase 142 H Total Protein 9.3 H Albumin 5.1 H Amylase 174 H Lipase 635.1 H TSH Urine Color Urine Appearance Urine pH Ur Specific [place] Urine Protein Urine Glucose (UA) Urine Ketones Urine Blood Urine Nitrite Ur Leukocyte Esterase Urine WBC (Auto) Urine RBC (Auto) 07/07/19 07/08/19 07/08/19 17:13 06:41 06:41 WBC 11.0 H RBC 5.52 Hgb 15.5 D Hct 46.1 MCV 84 MCH 28.0 MCHC 33.5 RDW 13.2 Plt Count 172 Seg Neutrophils % 68.7 VBG pH VBG pCO2 VBG HCO3 VBG Base Excess Sodium 134.4 L Potassium 4.5 Chloride 101 Carbon Dioxide 21 L Anion Gap 12 BUN 47 H Creatinine 1.74 H Est GFR ( Amer) 49 L Est GFR (Non-Af Amer) Glucose 264 H Lactic Acid Calcium 8.7 Magnesium 2.4 H Total Bilirubin 0.7 AST 25 Alkaline Phosphatase 95 Total Protein 6.7 Albumin 3.7 Amylase Lipase TSH 2.29 Urine Color Urine Appearance Urine pH Ur Specific [place] Urine Protein Urine Glucose (UA) Urine Ketones Urine Blood Urine Nitrite Ur Leukocyte Esterase Urine WBC (Auto) Urine RBC (Auto) 07/07/19 07/07/19 15:41 17:13 Troponin I Cancelled < 0.012 NT-Pro-B Natriuret Pep Cancelled < 11 Impressions: Chest X-Ray 07/07/19 16:00 IMPRESSION: Low inspiratory lung volumes without a superimposed acute c ardiopulmonary process. Assessment and Plan - Diagnosis (1) Hyperglycemia Is this a current diagnosis for this admission?: Yes Plan: Due to noncompliance with diabetic medications. IV fluids, basal insulin, prandial insulin, sliding scale insulin, Accu-Chek, hypoglycemia protocol. Diabetic education. (2) Diabetes Qualifiers: Diabetes mellitus type: type 2 Chronic kidney disease stage: stage 2 (mild) Is this a current diagnosis for this admission?: Yes Plan: Uncontrolled. History of noncompliance. Hemoglobin A1c 11%. Home meds are dulaglutide 0.75 mg subcutaneous q. Saturday. Insulin glargine 12 units nightly. Pioglitazone 30 mg p.o. daily. Basal insulin, prandial insulin, sliding scale insulin, restart home meds, hypoglycemic protocol, Accu-Chek. Diabetic education. Adjust dosage as needed. Restart home meds upon discharge. Follow-up with PCP. (3) History of CVA (cerebrovascular accident) Is this a current diagnosis for this admission?: Yes Plan: History of small multifocal CVA based on MRI from 04/13/2015. Continue statins, antiplatelets, optimize BP. (4) Hypertension Is this a current diagnosis for this admission?: Yes Plan: Normotensive. Euvolemic. Takes metoprolol, amlodipine and triamterene and hydrochlorothiazide at home. Restart metoprolol, amlodipine. Hold hydrochlorothiazide due to SUMMER. Adjust meds as needed. Restart home meds upon discharge. Outpatient PCP follow-up. (5) Acute kidney injury superimposed on CKD Is this a current diagnosis for this admission?: Yes Plan: Prerenal likely due to intravascular volume depletion caused by hypoglycemia. Creatinine improving. Electrolytes WNL. Monitor volume status and electrolytes replace as needed. Outpatient PCP follow-up. Avoid nephrotoxic meds. (6) Depression Is this a current diagnosis for this admission?: Yes Plan: Denies any suicidal homicidal ideation. Takes fluoxetine at home. Restart home meds. Outpatient PCP follow-up. (7) Seizures Is this a current diagnosis for this admission?: Yes Plan: Takes Keppra 500 mg p.o. twice daily at home. No seizure occurrence with patient. Continue seizure precautions. Restart home meds. Outpatient PCP follow-up. (8) Obesity (BMI 30-39.9) Is this a current diagnosis for this admission?: Yes Plan: Likely dietary related. TSH WNL. Diet and lifestyle modification recommended. - Plan Summary Summary: Patient will be treated with a sliding scale, IV fluids. Patient does not appear to be in DKA. Serum glucose in the ER is 395. Lactic acid 2.6 but no sign of sepsis. Patient was told that he will probably need 2 days of treatment and able to be discharged
[2019-07-08] MEDS ORDERED: BUTALB/ACETAMINOPHEN/CAFFEINE 1 TAB EACH PO PRN (13:54)
[2019-07-08] MEDS ORDERED: INSULIN GLARGINE HUM REC ANLOG 12 UNIT SUBCUT SCH (18:00)
[2019-07-08] MEDS ORDERED: LEVETIRACETAM 500 MG TABLET PO SCH (22:00)
[2019-07-08] MEDS: HYDRALAZINE HCL 25 MG TABLET PO SCH (22:40)
[2019-07-08] MEDS: ATORVASTATIN CALCIUM 40 MG TABLET PO SCH (22:41)
[2019-07-09] MEDS: HEPARIN SOD (PORCINE) 5,000 UNIT/ML 1 ML VIAL SUBCUT SCH ×3 (04:59→21:07)
[2019-07-09] MEDS: INSULIN LISPRO 100 UNIT/ML 3 ML VIAL SUBCUT SCH ×4 (08:37→22:50)
[2019-07-09] MEDS: LEVETIRACETAM 500 MG TABLET PO SCH ×2 (09:40→21:07)
[2019-07-09] MEDS: PIOGLITAZONE HCL 30 MG TABLET PO SCH (09:40)
[2019-07-09] MEDS: FLUOXETINE HCL 20 MG CAPSULE PO SCH (09:40)
[2019-07-09] MEDS: METOPROLOL SUCCINATE 50 MG TAB.SR.24H PO SCH (09:41)
[2019-07-09] MEDS: AMLODIPINE BESYLATE 10 MG TABLET PO SCH (09:41)
[2019-07-09] MEDS: HYDRALAZINE HCL 25 MG TABLET PO SCH ×2 (09:41→21:07)
[2019-07-09] MEDS: FAMOTIDINE 20 MG TABLET PO SCH ×2 (09:42→21:06)
[2019-07-09 10:10] LABS: ANION GAP 9 (5-19); BLOOD UREA NITROGEN 30 mg/dL (7-20); CALCIUM 9.3 mg/dL (8.4-10.2); CARBON DIOXIDE 24 mmol/L (22-30); CHLORIDE 102 mmol/L (98-107); GLUCOSE 202 mg/dL (75-110); POTASSIUM 4.6 mmol/L (3.6-5.0)
--- NOTE | 2019-07-09 12:04 | PDOC PROGRESS REPORT ---
Subjective Progress Note for:: 07/09/19 Subjective:: DEYVI GOMEZ is a 59 year old male who is been diabetic now for 2 years. Patient tells me he went to his doctor's office today to get a work note so he can return back to work, the nurse that he did not look well so they took him to the back and they checked his blood sugar and it was over 500. Patient states he is been running in the 400s and really was ready to go back to work the way he felt today. 07/09/2018. No acute events overnight. Denies any fever, chills, nausea, vomiting, diarrhea, constipation or any urinary symptoms. Ambulatory, having normal bowel and bladder movements. Blood glucose is not optimized yet. Reason For Visit: UNCONTROLLED DIABETES,HYPERTENSION Physical Exam Vital Signs: Temp Pulse Resp BP Pulse Ox 97.9 F 95 16 112/70 94 07/09/19 09:05 07/09/19 09:05 07/09/19 09:05 07/09/19 09:05 07/09/19 09:05 Intake & Output 07/08/19 07/09/19 07/10/19 06:59 06:59 06:59 Intake Total 1400 2260 Output Total 850 Balance 550 2260 Weight 103.6 kg 105 kg General appearance: PRESENT: morbidly obese Head exam: PRESENT: atraumatic, normocephalic Respiratory exam: PRESENT: clear to auscultation cherrie. ABSENT: rales, rhonchi, wheezes Cardiovascular exam: PRESENT: RRR. ABSENT: diastolic murmur, rubs, systolic murmur GI/Abdominal exam: PRESENT: normal bowel sounds, soft. ABSENT: distended, guarding, mass, organolmegaly, rebound, tenderness Neurological exam: PRESENT: alert, awake, oriented to person, oriented to place, oriented to time, oriented to situation, CN II-XII grossly intact. ABSENT: motor sensory deficit Results Laboratory Results: 07/08/19 06:41 07/09/19 09:31 07/09/19 09:31 Sodium 135.4 L Potassium 4.6 Chloride 102 Carbon Dioxide 24 Anion Gap 9 BUN 30 H Creatinine 1.62 H Est GFR ( Amer) 53 L Glucose 202 H Calcium 9.3 07/07/19 07/07/19 15:41 17:13 Troponin I Cancelled < 0.012 NT-Pro-B Natriuret Pep Cancelled < 11 Impressions: Chest X-Ray 07/07/19 16:00 IMPRESSION: Low inspiratory lung volumes without a superimposed acute cardiopulmonary process. Assessment and Plan - Diagnosis (1) Hyperglycemia Is this a current diagnosis for this admission?: Yes Plan: Improving. Not optimized. Due to noncompliance with diabetic medications. IV fluids, basal insulin, prandial insulin, sliding scale insulin, Accu-Chek, hypoglycemia protocol. Diabetic education. (2) Diabetes Qualifiers: Diabetes mellitus type: type 2 Chronic kidney disease stage: stage 2 (mild) Is this a current diagnosis for this admission?: Yes Plan: Uncontrolled. History of noncompliance. Hemoglobin A1c 11%. Home meds are dulaglutide 0.75 mg subcutaneous q. Saturday. Insulin glargine 12 units nightly. Pioglitazone 30 mg p.o. daily. Basal insulin, prandial insulin, sliding scale insulin, restart home meds, hypoglycemic protocol, Accu-Chek. Diabetic education. Adjust dosage as needed. Restart home meds upon discharge. Follow-up with PCP. (3) History of CVA (cerebrovascular accident) Is this a current diagnosis for this admission?: Yes Plan: History of small multifocal CVA based on MRI from 04/13/2015. Continue statins, antiplatelets, optimize BP. (4) Hypertension Is this a current diagnosis for this admission?: Yes Plan: Normotensive. Euvolemic. Takes metoprolol, amlodipine and triamterene and hydrochlorothiazide at home. Restart metoprolol, amlodipine. Hold hydrochlorothiazide due to SUMMER. Adjust meds as needed. Restart home meds upon discharge. Outpatient PCP follow-up. (5) Acute kidney injury superimposed on CKD Is this a current diagnosis for this admission?: Yes Plan: Improving. Prerenal likely due to intravascular volume depletion caused by hypoglycemia. Creatinine improving. Electrolytes WNL. Monitor volume status and electrolytes replace as needed. Outpatient PCP follow-up. Avoid nephrotoxic meds. (6) Depression Is this a current diagnosis for this admission?: Yes Plan: Denies any suicidal homicidal ideation. Takes fluoxetine at home. Restart home meds. Outpatient PCP follow-up. (7) Seizures Is this a current diagnosis for this admission?: Yes Plan: Takes Keppra 500 mg p.o. twice daily at home. No seizure occurrence with patient. Continue seizure precautions. Restart home meds. Outpatient PCP follow-up. (8) Obesity (BMI 30-39.9) Is this a current diagnosis for this admission?: Yes Plan: Likely dietary related. TSH WNL. Diet and lifestyle modification recommended.
[2019-07-09] MEDS ORDERED: INSULIN GLARGINE HUM REC ANLOG 14 UNIT SUBCUT SCH (18:00)
[2019-07-09] MEDS: ATORVASTATIN CALCIUM 40 MG TABLET PO SCH (21:07)
[2019-07-10 03:22] VITALS: BP 108/70
[2019-07-10] MEDS: HEPARIN SOD (PORCINE) 5,000 UNIT/ML 1 ML VIAL SUBCUT SCH (05:28)
[2019-07-10] MEDS ORDERED: GLUCAGON,HUMAN RECOMB 1 MG INJ IM PRN ×2 (08:39→08:52)
[2019-07-10] MEDS ORDERED: DEXTROSE 40% GEL 15 GM TUBE PO PRN ×4 (08:39→08:52)
[2019-07-10] MEDS ORDERED: DEXTROSE 50%-WATER 25 GM/50 ML DISP.SYRIN IV PRN ×4 (08:39→08:52)
[2019-07-10] MEDS: INSULIN LISPRO 100 UNIT/ML 3 ML VIAL SUBCUT SCH ×2 (09:57→11:57)
[2019-07-10] MEDS: PIOGLITAZONE HCL 30 MG TABLET PO SCH (09:58)
[2019-07-10] MEDS: LEVETIRACETAM 500 MG TABLET PO SCH (09:58)
[2019-07-10] MEDS: FAMOTIDINE 20 MG TABLET PO SCH (09:58)
[2019-07-10] MEDS: FLUOXETINE HCL 20 MG CAPSULE PO SCH (09:58)
[2019-07-10] MEDS: METOPROLOL SUCCINATE 50 MG TAB.SR.24H PO SCH (09:58)
[2019-07-10] MEDS: HYDRALAZINE HCL 25 MG TABLET PO SCH (09:59)
[2019-07-10] MEDS: AMLODIPINE BESYLATE 10 MG TABLET PO SCH (09:59)
[2019-07-10] MEDS ORDERED: INSULIN GLARGINE,HUM.REC.ANLOG 1,000 UNIT/10 ML VIAL SUBCUT SCH (10:00)
[2019-07-10] MEDS ORDERED: INSULIN GLARGINE HUM REC ANLOG 12 UNIT SUBCUT SCH ×2 (10:00→18:00)
[2019-07-10] MEDS ORDERED: INSULIN LISPRO 100 UNIT/ML 3 ML VIAL SUBCUT SCH (11:00)
--- NOTE | 2019-07-10 16:30 | PDOC DISCHARGE SUMMARY ---
Impression - Admit/DC Date/PCP Admission Date/Primary Care Provider: 07/07/19 19:22 ALEX VAZQUEZ Discharge Date: 07/10/19 - Discharge Diagnosis (1) Hyperglycemia Is this a current diagnosis for this admission?: Yes (2) Diabetes Is this a current diagnosis for this admission?: Yes (3) History of CVA (cerebrovascular accident) Is this a current diagnosis for this admission?: Yes (4) Hypertension Is this a current diagnosis for this admission?: Yes (5) Acute kidney injury superimposed on CKD Is this a current diagnosis for this admission?: Yes (6) Depression Is this a current diagnosis for this admission?: Yes (7) Seizures Is this a current diagnosis for this admission?: Yes (8) Obesity (BMI 30-39.9) Is this a current diagnosis for this admission?: Yes - Additional Information Resuscitation Status: Full Code Discharge Diet: Diabetic Discharge Activity: Activity As Tolerated Referrals: FRANTZ DICK FNP [Primary Care Provider] - Follow up as needed ([phone] -FQPZ MESSAGE ABOUT APPOINTMENT) Angus DIAZ MD [ACTIVE STAFF] - (PT HAS NOT BEEN SEEN FOR 3 YEARS. OFFICE WILL NEED ANOTHER REFERRAL SENT FROM PCP.) Home Medications: Atorvastatin Calcium [Lipitor 40 mg Tablet] 40 mg PO QHS #30 tablet 12/29/15 Levetiracetam [Keppra 500 mg Tablet] 500 mg PO Q12 #60 tablet 12/29/15 Amlodipine Besylate [Norvasc 10 mg Tablet] 10 mg PO DAILY 07/08/19 Butalb/Acetaminophen/Caffeine [Axbxqu-Vkfkiqxo-Uyrb 50-300-40] 1 cap PO Q4HP PRN MDD 6 tabs 07/08/19 Dulaglutide [Trulicity] 0.75 mg SUBCUT MO@1000 07/08/19 Fluoxetine HCl [Prozac 20 mg Capsule] 40 mg PO DAILYP PRN 07/08/19 Hydralazine HCl [Apresoline 25 mg Tablet] 25 mg PO Q12 07/08/19 Insulin Glargine,Hum.rec.anlog [Toujeo Solostar] 12 units SUBCUT QPM 07/08/19 Meclizine HCl [Antivert 25 mg Tablet] 25 mg PO TIDP PRN 07/08/19 Metoprolol Succinate [Toprol Xl 50 mg Tab.sr] 50 mg PO DAILY 07/08/19 Pioglitazone HCl [Actos 30 mg Tablet] 30 mg PO DAILY 07/08/19 Promethazine HCl [Phenergan 25 mg Tablet] 25 mg PO Q8HP PRN 07/08/19 Triamterene/Hydrochlorothiazid [Triamterene-Hctz 37.5-25 mg Cp] 1 each PO DAILY 07/08/19 History of Present Illiness History of Present Illness: DEYVI GOMEZ is a 59 year old male who is been diabetic now for 2 years. Patient tells me he went to his doctor's office today to get a work note so he can return back to work, the nurse that he did not look well so they took him to the back and they checked his blood sugar and it was over 500. Patient states he is been running in the 400s and really was ready to go back to work the way he felt today. Hospital Course Hospital Course: Assessment and Plan (1) Hyperglycemia Improved. Optimize. Due to noncompliance with diabetic medications. Admitted to telemetry, started on IV fluids, basal insulin, prandial insulin, sliding scale insulin, Accu-Chek, hypoglycemia protocol. Diabetic education provided. (2) Diabetes Uncontrolled. History of noncompliance. Hemoglobin A1c 11%. Home meds are dulaglutide 0.75 mg subcutaneous q. Saturday. Insulin glargine 12 units nightly. Pioglitazone 30 mg p.o. daily. Was a started on basal insulin, prandial insulin, sliding scale insulin, restart home meds, hypoglycemic protocol, Accu-Chek. Diabetic education provided. Was advised to restart home meds upon discharge. Follow-up with PCP. (3) History of CVA (cerebrovascular accident) History of small multifocal CVA based on MRI from 04/13/2015. Continued statins, antiplatelets, optimize BP. (4) Hypertension Normotensive. Euvolemic. Takes metoprolol, amlodipine and triamterene and hydrochlorothiazide at home. Restart metoprolol, amlodipine. Hold hydrochlorothiazide due to SUM[place]. Adjust meds as needed. Restart home meds upon discharge. Outpatient PCP follow-up. (5) Acute kidney injury superimposed on CKD Improved. Creatinine back to baseline. Prerenal likely due to intravascular volume depletion caused by hypoglycemia. Electrolytes WNL. Monitored volume status and electrolytes replace as needed. Outpatient PCP follow-up. Avoided nephrotoxic meds. Try to make an appointment with Dr. Diaz his [facility] however they state he has not been seen in 3 years and he has to be referred by PCP. Patient advised to follow-up nephrology and avoid nephrotoxic meds. (6) Depression Denied any suicidal homicidal ideation. Takes fluoxetine at home. Restarted home meds. Outpatient PCP follow-up. (7) Seizures Takes Keppra 500 mg p.o. twice daily at home. No seizure occurrence while inpatient. Seizure and fall precautions were implemented. Restarted Keppra 500 mg p.o. twice daily. Advised to restart home meds upon discharge. Outpatient PCP follow-up. (8) Obesity (BMI 30-39.9) Likely dietary related. TSH WNL. Diet and lifestyle modification recommended. Physical Exam Vital Signs: Temp Pulse Resp BP Pulse Ox 97.9 F 68 18 108/70 96 07/10/19 13:09 07/10/19 13:09 07/10/19 13:09 07/10/19 13:09 07/10/19 13:09 Intake & Output 07/09/19 07/10/19 07/11/19 06:59 06:59 06:59 Intake Total 2260 706 Balance 2260 706 Weight 105 kg 105 kg General appearance: PRESENT: obese Head exam: PRESENT: atraumatic, normocephalic Respiratory exam: PRESENT: clear to auscultation cherrie. ABSENT: rales, rhonchi, wheezes Cardiovascular exam: PRESENT: RRR. ABSENT: diastolic murmur, rubs, systolic murmur GI/Abdominal exam: PRESENT: normal bowel sounds, soft. ABSENT: distended, guarding, mass, organolmegaly, rebound, tenderness Neurological exam: PRESENT: alert, awake, oriented to person, oriented to place, oriented to time, oriented to situation, CN II-XII grossly intact. ABSENT: motor sensory deficit Results Laboratory Results: WBC 11.0 10^3/uL (4.0-10.5) H 07/08/19 06:41 RBC 5.52 10^6/uL (4.35-5.55) 07/08/19 06:41 Hgb 15.5 g/dL (13.5-17.0) D 07/08/19 06:41 Hct 46.1 % (37.9-51.0) 07/08/19 06:41 MCV 84 fl (80-97) 07/08/19 06:41 MCH 28.0 pg (27.0-33.4) 07/08/19 06:41 MCHC 33.5 g/dL (32.0-36.0) 07/08/19 06:41 RDW 13.2 % (11.5-14.0) 07/08/19 06:41 Plt Count 172 10^3/uL (150-450) 07/08/19 06:41 Lymph % (Auto) 19.4 % (13-45) 07/08/19 06:41 [place] % (Auto) 10.2 % (3-13) 07/08/19 06:41 Eos % (Auto) 1.2 % (0-6) 07/08/19 06:41 Baso % (Auto) 0.5 % (0-2) 07/08/19 06:41 Absolute Neuts (auto) 7.6 10^3/uL (1.7-8.2) 07/08/19 06:41 Absolute Lymphs (auto) 2.1 10^3/uL (0.5-4.7) 07/08/19 06:41 Absolute Monos (auto) 1.1 10^3/uL (0.1-1.4) 07/08/19 06:41 Absolute Eos (auto) 0.1 10^3/uL (0.0-0.6) 07/08/19 06:41 Absolute Basos (auto) 0.1 10^3/uL (0.0-0.2) 07/08/19 06:41 Seg Neutrophils % 68.7 % (42-78) 07/08/19 06:41 VBG pH 7.32 (7.30-7.42) 07/07/19 15:41 VBG pH Cancelled 07/07/19 15:41 VBG pCO2 48.9 mmHg (35-63) 07/07/19 15:41 VBG pCO2 Cancelled 07/07/19 15:41 VBG HCO3 24.7 mmol/L (20-32) 07/07/19 15:41 VBG HCO3 Cancelled 07/07/19 15:41 VBG Base Excess -2.1 mmol/L 07/07/19 15:41 VBG Base Excess Cancelled 07/07/19 15:41 Sodium 135.4 mmol/L (137-145) L 07/09/19 09:31 Potassium 4.6 mmol/L (3.6-5.0) 07/09/19 09:31 Chloride 102 mmol/L (98-107) 07/09/19 09:31 Carbon Dioxide 24 mmol/L (22-30) 07/09/19 09:31 Anion Gap 9 (5-19) 07/09/19 09:31 BUN 30 mg/dL (7-20) H 07/09/19 09:31 Creatinine 1.62 mg/dL (0.52-1.25) H 07/09/19 09:31 Est GFR ( Amer) 53 (>60) L 07/09/19 09:31 Est GFR (Non-Af Amer) Cancelled 07/07/19 15:41 Est GFR (MDRD) Non-Af 44 (>60) L 07/09/19 09:31 Glucose 202 mg/dL (75-110) H 07/09/19 09:31 POC Glucose 142 mg/dL (70-110) H 07/10/19 11:38 Hemoglobin A1c % 11.5 % (4.7-6.0) H 07/08/19 06:41 Lactic Acid 2.6 mmol/L (0.7-2.1) H 07/07/19 17:13 Calcium 9.3 mg/dL (8.4-10.2) 07/09/19 09:31 Magnesium 2.4 mg/dL (1.6-2.3) H 07/08/19 06:41 Total Bilirubin 0.7 mg/dL (0.2-1.3) 07/08/19 06:41 Direct Bilirubin 0.2 mg/dL (0.0-0.4) 07/08/19 06:41 Neonat Total Bilirubin Not Reportable 07/08/19 06:41 Neonat Direct Bilirubin Not Reportable 07/08/19 06:41 Neonat Indirect Bili Not Reportable 07/08/19 06:41 AST 25 U/L (17-59) 07/08/19 06:41 ALT 34 U/L (<50) 07/08/19 06:41 Alkaline Phosphatase 95 U/L (38-126) 07/08/19 06:41 Troponin I < 0.012 ng/mL 07/07/19 17:13 NT-Pro-B Natriuret Pep < 11 pg/mL (<125) 07/07/19 17:13 Total Protein 6.7 g/dL (6.3-8.2) 07/08/19 06:41 Albumin 3.7 g/dL (3.5-5.0) 07/08/19 06:41 Amylase 174 U/L (30-110) H 07/07/19 17:13 Lipase 635.1 U/L (23-300) H 07/07/19 17:13 EGFR Cancelled 07/07/19 15:41 TSH 2.29 uIU/mL (0.47-4.68) 07/07/19 17:13 Urine Color YELLOW 07/07/19 16:18 Urine Appearance CLEAR 07/07/19 16:18 Urine pH 5.0 (5.0-9.0) 07/07/19 16:18 Ur Specific [place] 1.020 07/07/19 16:18 Urine Protein NEGATIVE mg/dL (NEGATIVE) 07/07/19 16:18 Urine Glucose (UA) >=500 mg/dL (NEGATIVE) H 07/07/19 16:18 Urine Ketones NEGATIVE mg/dL (NEGATIVE) 07/07/19 16:18 Urine Blood SMALL (NEGATIVE) H 07/07/19 16:18 Urine Nitrite NEGATIVE (NEGATIVE) 07/07/19 16:18 Urine Nitrite (Reflex) Cancelled 07/07/19 16:18 Urine Bilirubin NEGATIVE (NEGATIVE) 07/07/19 16:18 Urine Urobilinogen NEGATIVE mg/dL (<2.0) 07/07/19 16:18 Ur Leukocyte Esterase NEGATIVE (NEGATIVE) 07/07/19 16:18 Leukocyte Esterase Rfl Cancelled 07/07/19 16:18 Urine WBC (Auto) 3 /HPF 07/07/19 16:18 Urine RBC (Auto) 2 /HPF 07/07/19 16:18 U Hyaline Cast (Auto) 1 /LPF 07/07/19 16:18 Urine WBC (Reflex) Cancelled 07/07/19 16:18 Squamous Epi Cells Auto <1 /HPF 07/07/19 16:18 Urine Mucus (Auto) OCC /LPF 07/07/19 16:18 Urine Ascorbic Acid NEGATIVE (NEGATIVE) 07/07/19 16:18 07/07/19 07/07/19 15:41 17:13 Troponin I Cancelled < 0.012 NT-Pro-B Natriuret Pep Cancelled < 11 Impressions: Chest X-Ray 07/07/19 16:00 IMPRESSION: Low inspiratory lung volumes without a superimposed acute cardiopulmonary process. Plan Time Spent: Greater than 30 Minutes Stroke Is this a Stroke Patient?: No Acute Heart Failure - Is this a Heart Failure Patient?: No
[2019-07-13] MEDS ORDERED: (PENDING PHARMACY ID) (Dulaglutide [Trulicity] 0.75 MG) SUBCUT SCH (10:00)
== END 2019-07-10 13:41 | disposition home or self-care (01) | DRG 638 ==
LOC: ER 15:21 → EH 19:22 → 5 20:16
PROVIDERS: ADMIT Hospitalist; ATTEND Hospitalist
DX: E11.65 Type 2 diabetes mellitus with hyperglycemia (principal); N17.9 Acute kidney failure, unspecified; I12.9 Hypertensive chronic kidney disease with stage 1 through stage 4 chronic kidney disease, or unspecified chronic kidney disease; E11.22 Type 2 diabetes mellitus with diabetic chronic kidney disease; N18.2 Chronic kidney disease, stage 2 (mild); E86.0 Dehydration; E78.00 Pure hypercholesterolemia, unspecified; R56.9 Unspecified convulsions; R53.1 Weakness; E66.01 Morbid (severe) obesity due to excess calories; Z86.73 Personal history of transient ischemic attack (TIA), and cerebral infarction without residual deficits; Z91.14 Patient's other noncompliance with medication regimen; Z79.4 Long term (current) use of insulin; Z79.899 Other long term (current) drug therapy
CPT/HCPCS: 36415; 71045; 80048; 80053; 81001; 82150; 82803; 82962; 83036; 83605; 83690; 83735; 83880; 84443; 84484; 85025; 87040; 93005; 93010; 96360; 96361; 99285; J1815; J3490; J7030